=== PATIENT | female | born 1990 | race Caucasian/White ===

== ENCOUNTER 2016-08-13 17:10 | Emergency (ER) | payer OTHER ==
[~2016-08-13] VITALS: Ht 167.6 cm; Wt 79.4 kg
[2016-08-13] MEDS ORDERED: PRENATABS RX T1 EACH PO (17:55)
--- NOTE | 2016-08-13 19:41 | ED INFLUENZA/URI COMPLAINT ---
History of Present Illness General Chief Complaint: General Adult Stated Complaint: 23 WEEKS PREG, PROBLEM BREATHING ,SWOLLEN [id number] Source: patient Exam Limitations: no limitations Reconcile Medications Vit #76/Iron,Carb/FA (Prenatabs Rx Tablet) 29 MG IRON-1 MG TABLET 1 TAB PO DAILY (Reported) Triage Note: PT IS 23 WEEKS AND STATES THAT THAT SHE HAS STUFFY NOSE, AND SORE THROAT SINCE THIS AM. DENIES ABD PAIN/URINARY SYMPTOMS, O2 SAT 97 % ON RA Triage Nurses Notes Reviewed? yes : Yes Patient currently breastfeeds: No HPI: This patient is a 26-year-old female currently approximately 23 weeks' gestation who presented to the emergency department for evaluation of multiple complaints. The patient reported a couple days ago she developed a cough productive of clear sputum. She reported some chest heaviness and difficulty breathing. She reported, "feels like I am breathing hard." The patient denied any chest pain, fevers, chills, ear pain. She did report some mild throat pain. The patient reported that she is now feeling nauseous. The nausea began just prior to ultrasound here in the emergency department. She denied any leakage of any vaginal fluid, vaginal bleeding. She reported that the baby is moving normally. (TIMOTHY BROUSSARD PA-C) Vital Signs & Intake/Output Vital Signs & Intake/Output Vital Signs Date Time Temp Pulse Resp B/P Pulse O2 O2 Flow FiO2 Ox Delivery Rate 08/13 2132 99.2 110 20 109/57 98 Room Air ED Intake and Output 08/14 0000 08/13 1200 Intake Total Output Total Balance Patient 175 lb Weight Allergies Coded Allergies: No Known Allergies (08/13/16) (SATHYA GILLIS,TANIYA) Past History Travel History Traveled to [place] past 21 day No Medical History Any Pertinent Medical History? 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 No (TIMOTHY BROUSSARD PA-C) Review of Systems Review of Systems Constitutional: Reports: no symptoms. EENTM: Reports: see HPI. Respiratory: Reports: see HPI. Cardiovascular: Reports: see HPI. GI: Reports: see HPI. Genitourinary: Reports: no symptoms. Musculoskeletal: Reports: no symptoms. Skin: Reports: no symptoms. Neurological/Psychological: Reports: no symptoms. All Other Systems: Reviewed and Negative (TIMOTHY BROUSSARD PA-C) Physical Exam Physical Exam Ears, Nose, Throat: moist mucous membrane, hearing grossly normal, pharynx normal, nasal congestion Comments: Well-developed well-nourished person in no acute distress Neck: Supple, no lymphadenopathy Back: Normal inspection Cardiovascular: Regular rate and rhythms no murmurs, rubs, or gallops Respiratory: Chest nontender. No respiratory distress. Breath sounds clear to auscultation bilaterally with no wheezes, rales, rhonchi Abdomen: Soft, nontender nondistended, no appreciable organomegaly. Normal bowel sounds Extremity: Normal and equal pulses Neuro: Alert oriented x3, cranial nerves II through XII grossly intact. Skin: No appreciable rash on exposed skin, skin is warm and dry. Psych: Mood and affect is normal Core Measures Severe Sepsis Present: No Septic Shock Present: No (TIMOTHY BROUSSARD PA-C) Progress Differential Diagnosis: influenza, pneumonia, pharyngitis, sinusitis, PE Plan of Care: Orders Procedure Date/time Status D-DIMER 08/13 1940 Complete TROPONIN LEVEL 08/13 1934 Complete COMPREHENSIVE METABOLIC PANEL 08/13 1934 Complete CBC WITHOUT DIFFERENTIAL 08/13 1934 Complete EKG 08/13 1934 Active THROAT CULTURE W/QUICK STREP 08/13 1714 Active Laboratory Tests 08/13/162006: Anion Gap 10, Estimated GFR > 60, BUN/Creatinine Ratio 12.5, Glucose 88, Calcium 8.9, Total Bilirubin 0.3, AST 17, ALT 25, Alkaline Phosphatase 105, Troponin I < 0.01, Total Protein 7.2, Albumin 3.5, Globulin 3.7, Albumin/Globulin Ratio 0.9 L, D-Dimer 495 H, CBC w Diff NO MAN DIFF REQ, RBC 4.23, MCV 87.4, MCH 29.5, RDW 13.5, MPV 8.1, Gran % 79.2 H, Lymphocytes % 10.9 L, Monocytes % 9.0, Eosinophils % 0.8, Basophils % 0.1, Absolute Granulocytes 8.8 H, Absolute Lymphocytes 1.2, Absolute Monocytes 1.0 H, Absolute Eosinophils 0.1, Absolute Basophils 0, PUBS MCHC 33.8 Diagnostic Imaging: Viewed by Me: Ultrasound. Discussed w/RAD: Ultrasound. Radiology Impression: PATIENT: ONEL VASQUEZ PRESENT AGE: 26 PATIENT ACCOUNT NO: [id number] : 90 LOCATION: [facility] ORDERING PHYSICIAN: TIMOTHY BROUSSARD PA-C SERVICE DATE: 08/13/16 EXAM TYPE: US - US- VIABILITY EXAMINATION: ULTRASOUND VIABILITY CLINICAL INFORMATION: Upper respiratory infection with labored breathing. Assess for viability. COMPARISON: None. TECHNIQUE: Transabdominal imaging of the pelvis was performed. FINDINGS: There is a single intrauterine gestation. The lie is transverse at present. movements are demonstrated. The heart rate is 157 beats per minutes. The placenta is posterior. The cervix is closed. MEASUREMENTS: The gestational age by ultrasound is 22 weeks and 2 days. The estimated date of delivery by ultrasound is 12/15/2016. biometric measurements are as follows: Biparietal Diameter: 5.45 cm (22 weeks and 5 days) Occipital Frontal Diameter: 7.09 cm (22 weeks and 6 days) Head Circumference: 19.92 cm (22 weeks and 1 day) Abdominal Circumference: 18.59 cm (23 weeks and 3 days) Femur Length: 3.44 cm (20 weeks and 6 days) ESTIMATED WEIGHT: 489 grams. IMPRESSION: 1. There is a normal living intrauterine gestation with an estimated date of delivery of 12/15/2016. Gestational age is 22 weeks and 2 days by ultrasound. 2. movements are demonstrated, and the heart rate 157 bpm. DICTATED BY: ASIF WHITTAKER MD DATE/TIME DICTATED:08/13/161935 CLAIM EXAMINER:MRUIEL DATE/TIME TRANSCRIBED:08/13/161935 CONFIDENTIAL, DO NOT COPY WITHOUT APPROPRIATE AUTHORIZATION. <Electronically signed in Other Vendor System> SIGNED BY: ASIF WHITTAKER MD 08/13/161948 Initial ED EKG: normal intervals, no ST T wave changes, sinus tachycardia, 114 bpm Comments: 08/13/2016 9:59:02 PM: Because this patient has been tachycardic throughout her stay here in the emergency department and is complaining of chest discomfort and difficulty breathing, my suspicion for a PE has to be in my differential. D- dimer was elevated. I discussed this patient with Dr. MCDONNELL. Agrees with the plan of this patient should be transferred to [facility] or proper imaging modality to rule out pulmonary embolism. I called [facility] and this patient will be transferred to [facility]. The patient and her are in agreement with this plan. (TIMOTHY BROUSSARD PA-C) Departure Departure Disposition: OTHER GENERAL HOSPITAL (ACUTE) Condition: Stable Clinical Impression Primary Impression: Elevated d-dimer Secondary Impressions: Tachycardia Referrals: PATIENT HAS NO PRIMARY CARE DR (PCP/Family) Departure Forms: Customer Survey General Discharge Information (TIMOTHY BROUSSARD PA-C) PA/INSERTER PROMOTIONAL ITEM Co-Sign Statement Statement: ED Attending supervision documentation- x I saw and evaluated the patient. I have also reviewed all the pertinent lab results and diagnostic results. I agree with the findings and the plan of care as documented in the PA's/INSERTER PROMOTIONAL ITEM's documentation. [] I have reviewed the ED Record and agree with the PA's/INSERTER PROMOTIONAL ITEM's documentation. [] Additions or exceptions (if any) to the PAs/INSERTER PROMOTIONAL ITEM's note and plan are summarized below: [] (TANIYA MCDONNELL MD)
--- NOTE | 2016-08-13 19:49 | ULTRASOUND REPORT ---
EXAMINATION: ULTRASOUND VIABILITY CLINICAL INFORMATION: Upper respiratory infection with labored breathing. Assess for viability. COMPARISON: None. TECHNIQUE: Transabdominal imaging of the pelvis was performed. FINDINGS: There is a single intrauterine gestation. The lie is transverse at present. movements are demonstrated. The heart rate is 157 beats per minutes. The placenta is posterior. The cervix is closed. MEASUREMENTS: The gestational age by ultrasound is 22 weeks and 2 days. The estimated date of delivery by ultrasound is 12/15/2016. biometric measurements are as follows: Biparietal Diameter: 5.45 cm (22 weeks and 5 days) Occipital Frontal Diameter: 7.09 cm (22 weeks and 6 days) Head Circumference: 19.92 cm (22 weeks and 1 day) Abdominal Circumference: 18.59 cm (23 weeks and 3 days) Femur Length: 3.44 cm (20 weeks and 6 days) ESTIMATED WEIGHT: 489 grams. IMPRESSION: 1. There is a normal living intrauterine gestation with an estimated date of delivery of 12/15/2016. Gestational age is 22 weeks and 2 days by ultrasound. 2. movements are demonstrated, and the heart rate 157 bpm.
[2016-08-13 20:18] LABS: ABSOLUTE BASOPHIL COUNT 0 /CUMM (0.0-0.2); ABSOLUTE EOSINOPHIL COUNT 0.1 /CUMM (0.0-0.7); ABSOLUTE GRANULOCYTE CT 8.8 /CUMM (1.4-6.5); ABSOLUTE LYMPH COUNT 1.2 /CUMM (1.2-3.4); BASOPHIL % 0.1 % (0.0-2.0); EOSINOPHIL % 0.8 % (0-5); GRANULOCYTE % 79.2 % (42.2-75.2); MEAN CORPUSCULAR HGB 29.5 PG (27.0-31.0); MEAN CORPUSCULAR HGB CONC 33.8 G/DL (33.0-37.0); MEAN CORPUSCULAR VOLUME 87.4 FL (81.0-99.0); MEAN PLATELET VOLUME 8.1 FL (7.4-10.4); PLATELET COUNT 251 /CUMM (130-400); RBC DISTRIBUTION WIDTH 13.5 % (11.5-14.5); RED BLOOD CELL CT 4.23 /CUMM (4.20-5.40); WHITE BLOOD CELL COUNT 11.1 /CUMM (4.8-10.8)
[2016-08-13 21:32] VITALS: BP 109/57
== END 2016-08-13 22:50 | disposition short-term general hospital (02) ==
LOC: ERH 17:10
PROVIDERS: Physician Assistant
DX: O26.92 Pregnancy related conditions, unspecified, second trimester (principal); R07.89 Other chest pain; R00.0 Tachycardia, unspecified; R79.89 Other specified abnormal findings of blood chemistry; Z3A.23 23 weeks gestation of pregnancy
CPT/HCPCS: 93005; 93010; J3101

== ENCOUNTER 2018-01-16 14:52 | Emergency (ER) | payer OTHER ==
[~2018-01-16] VITALS: Ht 167.6 cm; Wt 77.1 kg
[~2018-01-16 14:52] MED LIST: PRENATABS RX T1 EACH PO
[2018-01-16 15:08] VITALS: BP 119/77
[2018-01-16 15:48] LABS: ABSOLUTE BASOPHIL COUNT 0 /CUMM (0.0-0.2); ABSOLUTE EOSINOPHIL COUNT 0.5 /CUMM (0.0-0.7); ABSOLUTE GRANULOCYTE CT 6.7 /CUMM (1.4-6.5); ABSOLUTE LYMPH COUNT 1.7 /CUMM (1.2-3.4); ABSOLUTE MONOCYTE COUNT 0.6 /CUMM (0.10-0.60); BASOPHIL % 0.3 % (0.0-2.0); EOSINOPHIL % 5.3 % (0-5); GRANULOCYTE % 69.8 % (42.2-75.2); MEAN CORPUSCULAR HGB CONC 33.2 G/DL (33.0-37.0); MEAN CORPUSCULAR VOLUME 87.4 FL (81.0-99.0); MEAN PLATELET VOLUME 8.4 FL (7.4-10.4); PLATELET COUNT 325 /CUMM (130-400); RBC DISTRIBUTION WIDTH 13.4 % (11.5-14.5); RED BLOOD CELL CT 4.81 /CUMM (4.20-5.40); WHITE BLOOD CELL COUNT 9.6 /CUMM (4.8-10.8)
[2018-01-16] MEDS ORDERED: BUSPIRONE HCL10 M1 PO (17:29)
--- NOTE | 2018-01-16 17:35 | ED PSYCHIATRIC COMPLAINT ---
History of Present Illness General Chief Complaint: General Adult Stated Complaint: ANXIETY Source: patient Exam Limitations: no limitations Vital Signs & Intake/Output Vital Signs & Intake/Output Vital Signs Date Time Temp Pulse Resp B/P B/P Pulse O2 O2 Flow FiO2 Mean Ox Delivery Rate 01/16 1508 98.2 88 18 119/77 96 Room Air Allergies Coded Allergies: No Known Allergies (08/13/16) Triage Note: 27 YEAR OLD FEMALE TO ER WITH HER , PT COMPLAINS OF FEELING VERY ANXIOUS/SOB/SHAKEY AND N/V , PT ADMITS TO USING HEROINE X 2 WEEKS, DENIES ANY HISTORY OF USE IN THE PAST, APPETITE POOR, PT LAST USED HEROINE TODAY AROUND NOON. Triage Nurses Notes Reviewed? yes : No Patient currently breastfeeds: No HPI: 27-year-old female presents emergency department reporting at about 1 PM today she began feeling extremely anxious. She does report a history of anxiety and depression for which she takes buspirone regularly. She was prescribed this by primary care however she no longer sees them, although she is still continuing to take the medication. She also states that over the last week she has been vomiting fairly regularly and unable to keep food down. She does report feeling nauseous during visit. Patient does report recent drug use today, she had snorted about 1 bag of heroin. She also reports use of cocaine just under a bag yesterday. She does state the anxiety attack occurred after snorting heroin. Otherwise she denies any significant medical history. (Lita Osorio) Reconcile Medications Buspirone HCl 10 MG TABLET 1 TAB PO Q12H ANXIETY (Reported) Hydroxyzine Pamoate (Vistaril) 25 MG CAPSULE 1 CAP PO BID PRN anxiety (Lewis Colón MD) Past History Travel History Traveled to [place] past 21 day No Medical History Any Pertinent Medical History? 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 No (Lita Osorio) Review of Systems Review of Systems Constitutional: Reports: see HPI. EENTM: Reports: no symptoms. Respiratory: Reports: no symptoms. Cardiovascular: Reports: no symptoms. GI: Reports: no symptoms, see HPI. Genitourinary: Reports: no symptoms. Musculoskeletal: Reports: no symptoms. Skin: Reports: no symptoms. Neurological/Psychological: Reports: see HPI. Hematologic/Endocrine: Reports: no symptoms. Immunologic/Allergic: Reports: no symptoms. All Other Systems: Reviewed and Negative (Lita Osorio) Physical Exam Physical Exam General Appearance: well developed/nourished, no apparent distress, alert, awake , comfortable (after taking hydroxizine) Head: atraumatic, normal appearance Eyes: Bilateral: normal appearance. Ears, Nose, Throat: hearing grossly normal Neck: normal inspection, full range of motion Respiratory: no respiratory distress Gastrointestinal: soft, non-tender Extremities: normal range of motion Neurological/Psychiatric: no motor/sensory deficits, awake, alert, normal mood/ affect Appearance/Memory/Insight: appropriate appearance, appropriate insight, denies illness Behavoir/Eye Contact/Speech: cooperative, normal speech, good eye contact Thoughts/Hallucinations: normal thought pattern, no apparent hallucination Skin: intact, normal color, warm/dry SAD PERSONS Done? patient not suicidal (Lita Osorio) Progress Differential Diagnosis: drug intoxication, electrolyte abnormality, hypoglycemia , anxiety Plan of Care: Orders Procedure Date/time Status Add-on Test (ER Only) 01/16 1824 Active CULTURE,URINE 01/16 1651 Active URINE 01/16 1508 Complete URINE DRUG SCREEN FOR ER ONLY 01/16 1508 Complete URINALYSIS 01/16 1508 Complete TROPONIN LEVEL 01/16 1508 Complete MAGNESIUM 01/16 1508 Complete ETHANOL 01/16 1508 Complete COMPREHENSIVE METABOLIC PANEL 01/16 1508 Complete CBC WITHOUT DIFFERENTIAL 01/16 1508 Complete EKG 01/16 1508 Active Laboratory Tests 01/16/18 1651: Urine Opiates Screen 2982.00 H, Methadone Screen < 40, Barbiturate Screen < 60, Ur Phencyclidine Scrn < 6.00, Amphetamines Screen < 100, U Benzodiazepines Scrn < 85, Urine Cocaine Screen > 1000 H, Urine Cannabis Screen 5.60, Urinalysis LIGHT H, Urine Color YEL, Urine Clarity HAZY H, Urine pH 8.5 H, Ur Specific [place] 1.015, Urine Protein 30 H, Urine Ketones TRACE H, Urine Nitrite NEG, Urine Bilirubin NEG, Urine Urobilinogen 1.0, Ur Leukocyte Esterase NEG, Ur Microscopic SEDIMENT EXAMINED, Urine RBC RARE, Urine WBC RARE, Ur Epithelial Cells MANY H, Urine Bacteria MOD H, Urine Mucus MANY H, Urine Hemoglobin NEG, Urine Glucose NEG, Urine Test NEGATIVE 01/16/18 1540: Anion Gap 10, Estimated GFR > 60, BUN/Creatinine Ratio 16.0, Glucose 129 H, Calcium 9.4, Magnesium 1.9, Total Bilirubin 0.7, AST 30, ALT 37, Alkaline Phosphatase 76, Troponin I < 0.01, Total Protein 7.7, Albumin 4.1, Globulin 3.6, Albumin/Globulin Ratio 1.1, CBC w Diff NO MAN DIFF REQ, RBC 4.81, MCV 87.4, MCH 29.0, MCHC 33.2, RDW 13.4, MPV 8.4, Gran % 69.8, Lymphocytes % 18.1 L, Monocytes % 6.5, Eosinophils % 5.3 H, Basophils % 0.3, Absolute Granulocytes 6.7 H, Absolute Lymphocytes 1.7, Absolute Monocytes 0.6, Absolute Eosinophils 0.5, Absolute Basophils 0, Serum Alcohol < 10.0 Microbiology 01/16 1651 URINE ROUT: Urine Culture - RECD 27-year-old female with history of anxiety reporting panic attack today after snorting 1 bag of heroin, of note had used less than a full bag of cocaine yesterday. Patient had also reports 1 week of nausea/vomiting. -Hydroxyzine administered -IV fluids and zofran administered. -Patient feels much better after administration of medication. I explained to her that this drug use is likely what stimulated her to have a panic attack, particularly cocaine. Encourage cessation of drugs. Given recommendation for patient to follow-up outpatient for substance abuse management. Also advised patient to follow-up with psychiatrist/therapist for further management outpatient. Prescribe short course of hydroxyzine to patient's pharmacy. Patient agreed with plan was stable at time of discharge. Initial ED EKG: normal sinus rhythm (Lita Osorio) Departure Departure Disposition: HOME OR SELF CARE Condition: Stable Clinical Impression Primary Impression: Drug use Secondary Impressions: Anxiety, Panic attack Referrals: Patient Has No Primary Care Dr (PCP/Family) Additional Instructions: Please take medication as prescribed for anxiety. Follow-up outpatient with substance abuse management clinic. Follow-up with therapist and psychiatrist. Return to the emergency department with any new or worsening symptoms. Departure Forms: Customer Survey General Discharge Information Prescriptions: Current Visit Scripts Hydroxyzine Pamoate (Vistaril) 1 CAP PO BID PRN anxiety #20 CAP (Lita Osorio) PA/ECONOMICS DEPARTMENT CHAIR Co-Sign Statement Statement: ED Attending supervision documentation- I saw and evaluated the patient. I have also reviewed all the pertinent lab results and diagnostic results. I agree with the findings and the plan of care as documented in the PA's/ECONOMICS DEPARTMENT CHAIR's documentation. x I have reviewed the ED Record and agree with the PA's/ECONOMICS DEPARTMENT CHAIR's documentation. [] Additions or exceptions (if any) to the PAs/ECONOMICS DEPARTMENT CHAIR's note and plan are summarized below: [] (Eldon GILLIS,Lewis)
[2018-01-16] MEDS ORDERED: VISTARIL25 M1 PO (18:47)
== END 2018-01-16 19:01 ==
LOC: ERH 14:52
PROVIDERS: Physician Assistant Medical
DX: F11.10 Opioid abuse, uncomplicated (principal); F14.10 Cocaine abuse, uncomplicated; F41.0 Panic disorder [episodic paroxysmal anxiety]; F41.9 Anxiety disorder, unspecified
CPT/HCPCS: 80307; 81001; 81025; 87086; 93005; 93010; 96361; 96374; G0480; J2405

== ENCOUNTER 2018-02-19 06:34 | Emergency (ER) | payer OTHER ==
[~2018-02-19] VITALS: Ht 167.6 cm; Wt 77.1 kg
[~2018-02-19 06:34] MED LIST changes: +AMOXICILLIN500 M3 PO; +BUSPIRONE HCL10 M1 PO; +IBUPROFEN600 M1 PO; +PREDNISONE20 M1 PO; +VISTARIL25 M1 PO
--- NOTE | 2018-02-19 07:05 | ED GENERAL ADULT ---
History of Present Illness General Chief Complaint: General Adult Stated Complaint: "HAVING TROUBLE BREATHING,ANXIETY" Source: patient Exam Limitations: no limitations Vital Signs & Intake/Output Vital Signs & Intake/Output Vital Signs Date Time Temp Pulse Resp B/P B/P Pulse O2 O2 Flow FiO2 Mean Ox Delivery Rate 02/19 705 98 Room Air 02/19 705 98.0 59 18 120/78 98 Room Air Allergies Coded Allergies: No Known Allergies (02/19/18) Triage Nurses Notes Reviewed? yes : No Patient currently breastfeeds: No HPI: Ms. Bell 37-year-old female came to the emergency department complaining of shortness of breath, and states it has been an ongoing issue for her for the past month. Patient states his shortness of breath gets worse whenever she gets anxious, which makes her use her inhaler, which in turn makes him more anxious. Inhaler was prescribed last ED visit did a month ago. She denies any recent travel, hemoptysis, recent upper respiratory tract infection, chills, fever. She does not a cough for about a month duration that is dry in nature. (Shayne Hope MD,[facility]) Reconcile Medications Albuterol Sulfate (Proair Hfa) 90 MCG HFA.AER.AD 2 PUF INH Q4-6 PRN PRN ASTHMA (Reported) Alprazolam (Alprazolam Odt) 0.25 MG TAB.RAPDIS 1 TAB PO DAILY ANXIETY ( Reported) Benzonatate 200 MG CAPSULE 1 CAP PO TID (Reported) Buspirone HCl 10 MG TABLET 1 TAB PO BID ANXIETY (Reported) Hydroxyzine Pamoate 25 MG CAPSULE 1 CAP PO BID ANXIETY (Reported) Meloxicam 7.5 MG TABLET 1 TAB PO DAILY (Reported) Prednisone 20 MG TABLET 1 TAB PO DAILY (Reported) (Cherelle GILLIS,Guero Trevizo) Past History Travel History Traveled to [place] past 21 day No Medical History Any Pertinent Medical History? 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 No (Uziel Isabel MD) Review of Systems Review of Systems Constitutional: Reports: see HPI. EENTM: Reports: see HPI. Respiratory: Reports: no symptoms. Cardiovascular: Reports: chest pain. GI: Reports: no symptoms. Genitourinary: Reports: no symptoms. Musculoskeletal: Reports: no symptoms. Skin: Reports: no symptoms. Neurological/Psychological: Reports: no symptoms. Hematologic/Endocrine: Reports: no symptoms. Immunologic/Allergic: Reports: no symptoms. All Other Systems: Reviewed and Negative (Uziel Isabel MD) Physical Exam Physical Exam General Appearance: well developed/nourished, alert, awake, anxious Comments: General: Well-nourished, well-developed, no acute distress. Head: Normocephalic, atraumatic. No signs of trauma. Eyes: Normal inspection bilaterally. Neck: Supple, full range of motion. Heart: Regular rate and rhythm, no murmurs rubs or gallops. Lungs: Clear to auscultation bilaterally with normal air entry. Chest: Nontender. Abdomen: Bowel sounds present, soft, nontender, nondistended. Extremities: Normal range of motion grossly, equal radial pulses, no cyanosis clubbing or edema. Neurologic: Cranial nerves grossly intact, speech is clear Psychiatric: Anxious looking young female, cooperative, no apparent delusions or hallucinations. Core Measures ACS in differential dx? No CVA/TIA Diagnosis: No Sepsis Present: No Sepsis Focused Exam Completed? No (Uziel Isabel MD) Progress Differential Diagnoses I considered the following diagnoses in my evaluation of the patient: (Uziel Isabel MD) Initial ED EKG: NSR, no ST T wave changes Prior EKG: unchanged Comments: Patient is feeling much better. Patient is stable for discharge. (Cherelle GILLIS,Guero Trevizo) Plan of Care: Orders Procedure Date/time Status D-DIMER 02/19 0714 Complete EKG 02/19 714 Active Laboratory Tests 02/19/18 0726: D-Dimer High Sensitivty < 200 (Kevin Wang DO) Departure Departure Condition: Stable Referrals: Patient Has No Primary Care Dr (PCP/Family) Departure Forms: Customer Survey General Discharge Information (Uziel Isabel MD) Departure Disposition: HOME OR SELF CARE Clinical Impression Primary Impression: Dyspnea Secondary Impressions: Anxiety Additional Instructions: RETURN FOR ANY CONCERNS (Cherelle GILLIS,Guero Trevizo) Resident Co-Sign Statement Statement: ED Attending supervision documentation- [x] I saw and evaluated the patient. I have also reviewed all the pertinent lab results and diagnostic results. I agree with the findings and the plan of care as documented in the Resident's documentation. [] I have reviewed the ED Record and agree with the Resident's documentation. [] Additions or exceptions (if any) to the Resident's note and plan are summarized below: [] I saw and personally examined the patient and I agree with the university intern's evaluation. 27-year-old female with recent past medical history of reactive airway disease and anxiety. She woke up this morning with difficulty breathing. She is asymptomatic now. She is not on oral contraceptives. Vital signs are stable. Lungs are clear. EKG reveals normal sinus rhythm nonspecific ST-T wave abnormality. We check a d-dimer because of the persistent intermittent difficulty breathing. Give by mouth Xanax. Likely discharge and follow-up with her doctor this week. The patient was signed out to Dr. Villarreal at 7 AM. (Kevin Wang DO) Critical Care Note Critical Care Note Critical Care Time: non-applicable (Kevin Wang DO)
[2018-02-19] MEDS ORDERED: MELOXICAM7.5 M1 PO (07:07)
[2018-02-19] MEDS ORDERED: BUSPIRONE HCL10 M1 PO (07:07)
[2018-02-19] MEDS ORDERED: ALPRAZOLAM OD0.25 MG PO ×3 (07:08→17:28)
[2018-02-19] MEDS ORDERED: BENZONATATE200 M1 PO (07:08)
[2018-02-19] MEDS ORDERED: HYDROXYZINE PAM25 M2 PO (07:08)
[2018-02-19] MEDS ORDERED: PREDNISONE20 M1 PO (07:09)
[2018-02-19] MEDS ORDERED: PROAIR HFA8.5 GM INH (07:09)
[2018-02-19 09:20] VITALS: BP 124/72
[2018-02-19] MEDS ORDERED: XANAX0.25 M1 PO (17:41)
== END 2018-02-19 09:19 ==
LOC: ERH 06:34
DX: R06.00 Dyspnea, unspecified (principal); F41.9 Anxiety disorder, unspecified
CPT/HCPCS: 93005; 93010

== ENCOUNTER 2018-02-24 21:10 | Emergency (ER) | payer OTHER ==
[~2018-02-24] VITALS: Ht 167.6 cm; Wt 77.1 kg
[~2018-02-24 21:10] MED LIST changes: +ALPRAZOLAM OD0.25 MG PO; +BENZONATATE200 M1 PO; +HYDROXYZINE PAM25 M2 PO; +MELOXICAM7.5 M1 PO; +PROAIR HFA8.5 GM INH; +XANAX0.25 M1 PO
--- NOTE | 2018-02-25 00:15 | ED DYSPNEA/ASTHMA COMPLAINT ---
History of Present Illness General Chief Complaint: Dyspnea (COPD, CHF, Other) Stated Complaint: TROUBLE BREATHING, CHEST PRESSURE Source: patient, old records Exam Limitations: no limitations Vital Signs & Intake/Output Vital Signs & Intake/Output Vital Signs Date Time Temp Pulse Resp B/P B/P Pulse O2 O2 Flow FiO2 Mean Ox Delivery Rate 02/24 2357 98.0 88 18 113/72 99 Room Air 02/24 2120 97.6 84 20 116/81 100 Room Air ED Intake and Output 02/25 0000 02/24 1200 Intake Total Output Total Balance Patient 170 lb Weight Weight Reported by Patient Measurement Method Allergies Coded Allergies: No Known Allergies (02/19/18) Reconcile Medications Albuterol Sulfate (Proair Hfa) 90 MCG HFA.AER.AD 2 PUF INH Q4-6 PRN PRN ASTHMA (Reported) Alprazolam (Alprazolam Odt) 0.25 MG TAB.RAPDIS 1 TAB PO DAILY ANXIETY Alprazolam (Xanax) 0.25 MG TABLET 1 TAB PO TID PRN ANXIETY Benzonatate 200 MG CAPSULE 1 CAP PO TID (Reported) Buspirone HCl 10 MG TABLET 1 TAB PO BID ANXIETY (Reported) Fluticasone Propionate (Flonase Allergy Relief) 50 MCG/ACTUATION SPRAY.SUSP 2 SPRAY NASB DAILY sinusitis Hydroxyzine Pamoate 25 MG CAPSULE 1 CAP PO BID ANXIETY (Reported) Meloxicam 7.5 MG TABLET 1 TAB PO DAILY (Reported) Methylprednisolone. (Medrol) 4 MG TAB.DS.PK 1 DP PO AD sinusitis 6 on day 1 then reduce by one tablet daily until gone Oxymetazoline HCl (Afrin) 0.05 % SPRAY 2 SPRAY NASB BID sinusitis Prednisone 20 MG TABLET 1 TAB PO DAILY (Reported) Sulfamethoxazole/Trimethoprim (Bactrim Ds Tablet) 800 MG-160 MG TABLET 1 TAB PO BID sinusitis Triage Note: PT TO ED FOR REPRODUCABLE CP STARTING THIS MORNING. "I GOOGLED CONSTIPATION CAUSING CHEST PAIN AND IT SAYS IT CAN" LBM 3 WEEKS AGO. 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 HX ANXIETY. PT ALSO C/O OF ABD PAIN, MID ABD "IT'S BEEN GOING ON MY WHOLE LIFE" Triage Nurses Notes Reviewed? yes Onset: Last week Duration: week(s):, continues in ED, intermittent Timing: recent history Severity: moderate, severe Activities at Onset: activity Prior Episodes/Possible Cause: frequent episodes Modifying Factors: Improves With: movement. Worsens With: rest. Associated Symptoms: cough, wheezing LMP (ages 10-50): unknown : No Patient currently breastfeeds: No HPI: The patient complains of chronic sinus drainage and discomfort. 2 weeks prior to admission patient complains of episodic wheezing shortness of breath with nonproductive cough. Several days prior to admission she reports recurrent shortness of breath fatigue chest pain. She reports also being concerned her constipation may be worsening her shortness of breath as she moves her bowels only once per month. She denies fever chills nausea vomiting diarrhea abdominal pain headache dysuria rash bleeding. Past History Travel History Traveled to [place] past 21 day No Medical History Any Pertinent Medical History? 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 No Review of Systems Review of Systems Constitutional: Reports: no symptoms. EENTM: Reports: no symptoms. Respiratory: Reports: see HPI, cough, short of breath, wheezing. Cardiovascular: Reports: see HPI, chest pain. GI: Reports: see HPI, changes in stool. Genitourinary: Reports: no symptoms. Musculoskeletal: Reports: no symptoms. Skin: Reports: no symptoms. Neurological/Psychological: Reports: no symptoms. Hematologic/Endocrine: Reports: no symptoms. Immunologic/Allergic: Reports: no symptoms. All Other Systems: Reviewed and Negative Physical Exam Physical Exam General Appearance: well developed/nourished, alert, awake, anxious, mild distress Head: atraumatic, normal appearance Eyes: Bilateral: normal appearance, PERRL, EOMI. Ears, Nose, Throat: normal pharynx, sinus pain/drainage, nasal congestion Neck: normal inspection, supple, full range of motion, no midline tenderness Respiratory: normal breath sounds, chest non-tender, no respiratory distress, quiet respiration, lungs clear Cardiovascular: regular rate/rhythm, normal peripheral pulses, norml femoral pulses equa Peripheral Pulses: 4+ carotid (R), 4+ carotid (L) Gastrointestinal: normal bowel sounds, soft, non-tender, no organomegaly Extremities: normal inspection, normal capillary refill, normal range of motion, no edema Neurologic/Psych: no motor/sensory deficits, awake, alert, oriented x 3, normal gait, normal mood/affect, 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 No CVA/TIA Diagnosis No Sepsis Present: No Sepsis Focused Exam Completed? No Progress Differential Diagnosis: asthma, bronchitis, musculoskeletal pain, pneumonia Plan of Care: Orders Procedure Date/time Status URINE 02/25 001 Complete EKG 02/24 2111 Active Laboratory Tests 02/25/18 0036: Urine Test NEGATIVE Initial ED EKG: normal axis, normal intervals, normal p-waves, normal QRS complex, normal sinus rhythm, no ST T wave changes Rhythm Strip: normal sinus rhythm Departure Departure Time of Disposition: 247 Disposition: HOME OR SELF CARE Condition: Stable Clinical Impression Primary Impression: Sinusitis Secondary Impressions: Bronchitis Referrals: Ermias Mcneal MD Call for ENT follow up Departure Forms: Customer Survey General Discharge Information Prescriptions: Current Visit Scripts Sulfamethoxazole/Trimethoprim (Bactrim Ds Tablet) 1 TAB PO BID #20 TAB Oxymetazoline HCl (Afrin) 2 SPRAY NASB BID #30 ML Fluticasone Propionate (Flonase Allergy Relief) 2 SPRAY NASB DAILY #1 BOT Methylprednisolone. (Medrol) 1 DP PO AD #1 DP 6 on day 1 then reduce by one tablet daily until gone Critical Care Note Critical Care Note Critical Care Time: non-applicable
--- NOTE | 2018-02-25 01:52 | RADIOLOGY REPORT ---
EXAMINATION: XR ABDOMEN WITH PA CHEST CLINICAL INDICATION: Cough, shortness of breath. No stools for one month. COMPARISON: Chest radiograph 02/10/2018 TECHNIQUE: PA view of the chest. 2 views of the abdomen. FINDINGS: The lungs are well expanded. There is no focal consolidation, edema, or effusion. No pneumothorax. The cardiomediastinal silhouette is within normal limits. No acute osseous abnormality. Normal bowel gas pattern without dilated loops of bowel. Gas and stool are seen in the colon. Moderate colonic stool burden, predominantly in the right hemicolon. No free air on the upright view. No air-fluid levels. No acute osseous abnormality. IMPRESSION: Clear lungs. Moderate colonic stool burden.
[2018-02-25] MEDS ORDERED: BACTRIM DS TAB1 EACH PO (02:51)
[2018-02-25] MEDS ORDERED: AFRIN30 ML NASB (02:51)
[2018-02-25] MEDS ORDERED: FLONASE ALLERG9.9 ML NASB (02:51)
[2018-02-25] MEDS ORDERED: MEDROL4 M2 PO (02:51)
[2018-02-25] MEDS ORDERED: MIRALAX119 GM PO (02:53)
[2018-02-25 02:59] VITALS: BP 121/70
== END 2018-02-25 02:58 ==
LOC: ERH 21:10
DX: J32.9 Chronic sinusitis, unspecified (principal); J40 Bronchitis, not specified as acute or chronic
CPT/HCPCS: 74022; 81025; 93005; 93010